=== PATIENT | female | born 1965 | race Caucasian/White ===

== ENCOUNTER → 2018-10-02 | Outpatient (CLI) | payer OTHER ==
[2015-10-11 10:16] VITALS: BP 125/64
[~2018-10-02] MED LIST: CYCL10TA2 PO; HYDR-2762 PO; LEVO75TA5 PO; METF10007 PO; SPIR1TAB2 PO
--- NOTE | 2018-10-02 14:59 | KCIC ---
MR of the left hip Indication: Left hip pain for 4 months. Technique: Standard multiplanar sequences are obtained. FINDINGS: Artifact: No significant image degradation. Bones: Bone marrow edema signal within the left femoral head, more so laterally, and extending into the left femoral neck. There is corresponding hypointense T1 signal. No evidence of focal lesion. No specific evidence of osteonecrosis although that is in the differential. No evidence of acute macro fracture. Effusion: Moderate joint effusion. Joint: Mild degenerative changes, with evidence of chondromalacia. Labrum: Tear of the anterior labrum. Gluteus minimus tendon: Intact Gluteus medius tendon: Intact Hamstring tendon: Intact Iliopsoas tendon: Intact Rectus femoris tendon attachment:Intact Soft tissue: Large septated cystic lesion in the left pelvis, measures 5.5 cm, could be of ovarian origin. Coronal STIR survey sequence inclusive of the contralateral hip demonstrates no acute findings at the contralateral hip. IMPRESSION: 1. Abnormal marrow at the left femoral head and neck with edema and loss of fatty T1 signal, suspicious for transient osteoporosis of the hip. This is nonspecific, however, and stress fracture or early avascular necrosis could result in a similar appearance. 2. Anterior labral tear. 3. Mild degenerative changes. Electronically signed by: Ryan Bang MD (10/02/2018 2:56 PM) [facility]
== END | disposition home or self-care (01) ==
LOC: KCIC MRI 08:22
PROVIDERS: ATTEND Physician Assistant Medical
DX: S73.192A Other sprain of left hip, initial encounter (principal); M16.12 Unilateral primary osteoarthritis, left hip; M25.452 Effusion, left hip; M94.252 Chondromalacia, left hip; R60.0 Localized edema; X58.XXXA Exposure to other specified factors, initial encounter; Y93.89 Activity, other specified; Y92.89 Other specified places as the place of occurrence of the external cause; Y99.8 Other external cause status
CPT/HCPCS: 73721

== ENCOUNTER → 2018-10-28 | Outpatient (CLI) | payer OTHER ==
[2015-10-11 10:16] VITALS: BP 125/64
[~2018-10-28] MED LIST changes: -HYDR-2762 PO; +HYDR-2765 PO
== END | disposition home or self-care (01) ==
LOC: LAB 23:25
PROVIDERS: ATTEND Nurse Practitioner Family
DX: N83.202 Unspecified ovarian cyst, left side (principal); N83.201 Unspecified ovarian cyst, right side
CPT/HCPCS: 36415; 86304; 86305

== ENCOUNTER → 2018-10-31 | Outpatient (CLI) | payer OTHER ==
[2015-10-11 10:16] VITALS: BP 125/64
[~2018-10-31] MED LIST changes: +BUPIVACAINE MPF 0.5% 10 ML VIAL for KCIC. IJ ONE; +IOHEXOL 300 MG/ML 50 ML VIAL. INT ART ONE; +LIDOCAINE 1% Multi-Dose 20 ML VIAL. ID ONE; +methylPREDNISolone ACETATE 40 MG/ML VIAL. INT ART ONE
--- NOTE | 2018-10-31 16:31 | KCIC ---
PROCEDURE Therapeutic left hip injection using fluoroscopic guidance. HISTORY Hip pain. TECHNIQUE The procedure was explained to the patient as were potential risks, including infection, bleeding or allergic reaction. All questions were answered. Informed written and verbal consent was obtained. The hip was prepped and draped in the usual sterile manner. Following administration of local anesthetic, a 22-gauge spinal needle was advanced into the hip joint without difficulty, with care taken to avoid the vascular structures. Stylet was removed and following negative aspiration, a mixture of 4 cc Omnipaque-300, 2 cc (80 mg) Depo-Medrol, 4 cc bupivacaine and 4 cc 1% lidocaine were injected without difficulty. Fluoroscopy demonstrates uniform and satisfactory distribution of the injection through the hip. The needle was removed. There was good hemostasis at the injection site. The patient left in stable condition without immediate complication. Patient was advised as to potential postprocedural complications and advised to contact their physician or the emergency room in such event. A single spot image was obtained. FLUOROSCOPY TIME: 45 seconds Electronically signed by: Ryan Bang MD (10/31/2018 4:27 PM) [facility][id number]
== END | disposition home or self-care (01) ==
LOC: KCIC 02:15
PROVIDERS: ATTEND Orthopaedic Surgery Sports Medicine
DX: M25.552 Pain in left hip (principal); G89.29 Other chronic pain; Z88.2 Allergy status to sulfonamides
CPT/HCPCS: 20610; 77002; J1030; Q9967

== ENCOUNTER → 2019-01-10 | Day surgery (SDC) | payer OTHER ==
[2015-10-11 10:16] VITALS: BP 125/64
[~2019-01-10] MED LIST changes: -BUPIVACAINE MPF 0.5% 10 ML VIAL for KCIC. IJ ONE; -IOHEXOL 300 MG/ML 50 ML VIAL. INT ART ONE; -LIDOCAINE 1% Multi-Dose 20 ML VIAL. ID ONE; +NITR50CA11 PO; +OXYC1TAB15 PO; -methylPREDNISolone ACETATE 40 MG/ML VIAL. INT ART ONE
--- NOTE | 2019-01-10 14:22 | EKG ---
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 Electronically Signed On 01-13-2019 10:48:58 [employer] by Ezekiel Jeronimo
[2019-01-10 14:35] LABS: BASO # 0.1 x10^3/uL (0.0-0.2); BASO % 1 % (0-3); EOS # 0.4 x10^3/uL (0.0-0.7); EOS % 4 % (0-3); HEMATOCRIT 36.8 % (36.0-47.0); HEMOGLOBIN 12.6 g/dL (12.0-15.5); LYMPH # 2.2 x10^3/uL (1.0-4.8); LYMPH % 21 % (24-48); MEAN CORPUSCULAR HEMOGLOBIN 32 pg (25-35); MEAN CORPUSCULAR HGB CONC 34 g/dL (31-37); MEAN CORPUSCULAR VOLUME 93 fL (79-100); MONO # 0.8 x10^3/uL (0.0-1.1); MONO % 8 % (0-9); NEUT # 7.1 x10^3uL (1.8-7.7); NEUT % 67 % (31-73); PLATELET COUNT 359 x10^3/uL (140-400); RED BLOOD COUNT 3.94 x10^6/uL (3.50-5.40); RED CELL DISTRIBUTION WIDTH 13.1 % (11.5-14.5); WHITE BLOOD COUNT 10.5 x10^3/uL (4.0-11.0)
[2019-01-10 14:58] LABS: ALBUMIN 3.6 g/dL (3.4-5.0); ALBUMIN/GLOBULIN RATIO 0.9 (1.0-1.7); CALCIUM 9.3 mg/dL (8.5-10.1); CREATININE 1.3 mg/dL (0.6-1.0); GFR 42.8; POTASSIUM 3.4 mmol/L (3.5-5.1); TOTAL BILIRUBIN 0.2 mg/dL (0.2-1.0); TOTAL PROTEIN 7.5 g/dL (6.4-8.2)
[2019-01-10 15:14] LABS: BILIRUBIN,URINE NEGATIVE (NEG); CLARITY,URINE CLEAR; COLOR,URINE YELLOW; NITRITE,URINE POSITIVE (NEG); PROTEIN,URINE NEGATIVE (NEG-TRACE); UROBILINOGEN,URINE 0.2 mg/dL (0.2 mg/dL)
[2019-01-10 15:32] LABS: BACTERIA,URINE MANY /HPF (0-FEW); RBC,URINE 0 /HPF (0-2); SQUAMOUS EPITHELIAL CELL,UR MANY /LPF
--- NOTE | 2019-01-13 19:04 | NUR ---
FAXED PRE - OP TEST REPORTS,LABS,UA WITH CULTURE TO 'S OFFICE 01/13/2019 AND RECEIVED TRANSMITTAL CONFIRMATION. 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
--- NOTE | 2019-01-14 19:46 | NUR ---
'S JAYLYN LUI CALLED AT 1715 THIS EVENING AND SAID PATIENT WAS PRESCRIBED TO TAKE MACROBID 100 MG BID PER ,ALSO INFORMED HER THAT EKG WAS REVIEWED BY JOHNATHAN SHIPMAN RN AT 1015 THIS AM, ANESTHESIA TEAM AND OKAY.
== END | disposition home or self-care (01) ==
LOC: SURGPAT 14:00
PROVIDERS: ATTEND Obstetrics & Gynecology
DX: I25.10 Atherosclerotic heart disease of native coronary artery without angina pectoris (principal); Z88.2 Allergy status to sulfonamides; Z79.899 Other long term (current) drug therapy
CPT/HCPCS: 36415; 80053; 81001; 85025; 87086; 87186; 93005

== ENCOUNTER 2019-01-15 06:07 | Observation (INO) | payer OTHER ==
[~2019-01-15] VITALS: Ht 165.1 cm; Wt 113.9 kg
[~2019-01-15 06:07] MED LIST changes: -NITR50CA11 PO; -OXYC1TAB15 PO; +cefOXitin SODIUM IV Push 1 GM VIAL. IVP PRN
[2019-01-15] MEDS ORDERED: NITR50CA11 PO (06:26)
[2019-01-15] MEDS ORDERED: DEXAMETHASONE SOD PHOS 20 MG/5 ML VIAL. ONE (06:48)
[2019-01-15] MEDS ORDERED: ROCURONIUM 50 MG/5 ML VIAL. ONE ×2 (06:48→08:38)
[2019-01-15] MEDS ORDERED: PROPOFOL 20 ML IV ONE (06:48)
[2019-01-15] MEDS ORDERED: ONDANSETRON PF 4 MG/2 ML VIAL. ONE (06:48)
[2019-01-15] MEDS ORDERED: LIDOCAINE 2% PF 5 ML VIAL. ONE (06:48)
[2019-01-15] MEDS: IV RINGERS,LACTATED 1000ML 1,000 ML IV SCH ×2 (06:55→11:07)
[2019-01-15] MEDS ORDERED: PROCHLORPERAZINE 10 MG/2 ML VIAL. IV PRN (07:00)
[2019-01-15] MEDS ORDERED: fentaNYL PF VIAL 100 MCG/2 ML VIAL IV PRN (07:00)
[2019-01-15] MEDS ORDERED: ONDANSETRON PF 4 MG/2 ML VIAL. IV PRN ×2 (07:00→11:00)
[2019-01-15] MEDS ORDERED: MORPHINE SULFATE 4 MG/ML VIAL. IV PRN ×2 (07:00→11:00)
[2019-01-15] MEDS ORDERED: LIDOCAINE 1% PF 2 ML VIAL. ID PRN (07:00)
[2019-01-15] MEDS ORDERED: HYDROmorphone 2 MG/ML VIAL IV PRN (07:00)
[2019-01-15] MEDS ORDERED: fentaNYL PF VIAL 100 MCG/2 ML VIAL ONE ×2 (07:15→09:31)
[2019-01-15] MEDS ORDERED: MIDAZOLAM HCL/PF 2 MG/2 ML VIAL. ONE (07:16)
[2019-01-15] MEDS ORDERED: ESTROGENS, CONJ VAGINAL CREAM 30GM TUBE. ONE (07:28)
[2019-01-15] MEDS ORDERED: BUPIVACAINE-EPI 0.25%-1:200000 MPF 30 ML VIAL. ONE (07:28)
[2019-01-15] MEDS ORDERED: METHYLENE BLUE 1% 10 ML VIAL. ONE (07:29)
[2019-01-15] MEDS ORDERED: LEVOTHYROXINE 75 MCG TABLET PO SCH (08:00)
[2019-01-15] MEDS ORDERED: CYCLOBENZAPRINE 10 MG TABLET. PO PRN (08:00)
[2019-01-15] MEDS ORDERED: KETOROLAC 30 MG/ML INJ FOR OR. INJ ONE (08:12)
[2019-01-15] MEDS ORDERED: NEOSTIGMINE 10 MG/10 ML VIAL. ONE (08:12)
[2019-01-15] MEDS ORDERED: GLYCOPYRROLATE 1 MG/5 ML VIAL. ONE (08:12)
[2019-01-15] MEDS ORDERED: PHENYLEPHRINE 10 MG/ML VIAL. ONE (08:16)
[2019-01-15] MEDS ORDERED: cefOXitin SODIUM IV Push 1 GM VIAL. IVP ONE (08:28)
[2019-01-15 08:47] LABS: U PREG PATIENT NEGATIVE (NEG)
--- NOTE | 2019-01-15 10:50 | PDOC ---
BRIEF OPERATIVE NOTE Date: Jan 15, 2019 Pre-Op Diagnosis pelvic pain, recurrent bilateral ovarian cysts Post-Op Diagnosis same plus extensive pelvic adhesive disease Procedure Performed LAVH, LSO, right oopherectomy, adhesiolysis Surgeon Dr. Aimee James Management Professor Sid Triplett Anesthesiologist Dr. Welsh Anesthesia Type: General Blood Loss 500cc IV Fluid 1500cc Urine Output 225cc clear Specimens Obtained cervix, uterus, left tube and ovary, right ovary Findings mildly enlarged cystic RV uterus, normal right ovary with small adhesion, prior right tube removed, adhesion of left tube/ovary to left sidewall, cervix and fat of desc colon Complications none Operative Note [id number] AIMEE JAMES MD Jan 15, 2019 10:50
[2019-01-15] MEDS ORDERED: 0.9 % SODIUM CHLORIDE 10 ML DISP.SYRIN. IV PRN (11:00)
[2019-01-15] MEDS ORDERED: ZOLPIDEM 5 MG TABLET. PO PRN (11:00)
[2019-01-15] MEDS ORDERED: NALOXONE 0.4 MG/ML VIAL. IV PRN (11:00)
[2019-01-15] MEDS ORDERED: CALCIUM CARBONATE 500 MG TAB.CHEW PO PRN (11:00)
[2019-01-15] MEDS ORDERED: MAGNESIUM HYDROXIDE 2,400 MG/30 ML ORAL.SUSP. PO PRN (11:00)
[2019-01-15] MEDS ORDERED: SIMETHICONE 80 MG TAB.CHEW PO PRN (11:00)
[2019-01-15] MEDS ORDERED: HYDROcodone/APAP 5/325MG 1 TAB TABLET PO PRN (11:00)
[2019-01-15] MEDS ORDERED: diphenhydrAMINE 50 MG/ML VIAL IV PRN (11:00)
[2019-01-15] MEDS ORDERED: diphenhydrAMINE HCL 25 MG CAPSULE PO PRN (11:00)
[2019-01-15] MEDS ORDERED: MAG HYDROX/ALUMINUM HYD/SIMETH 30 ML ORAL.SUSP PO PRN (11:00)
[2019-01-15] MEDS ORDERED: LACTULOSE 20 GM/30 ML SOLUTION. PO PRN (11:00)
[2019-01-15] MEDS: fentaNYL PF VIAL 100 MCG/2 ML VIAL IV PRN ×2 (11:09→11:34)
[2019-01-15] MEDS ORDERED: INSULIN LISPRO 100 UNIT/ML 3ML VIAL. SQ ONE (11:15)
[2019-01-15 12:15] VITALS: BP 94/58
[2019-01-15 12:30] VITALS: BP 97/54
[2019-01-15 13:00] VITALS: BP 99/56
--- NOTE | 2019-01-15 13:11 | OP ---
DATE OF SURGERY: 01/15/2019 PREOPERATIVE DIAGNOSES: Pelvic pain with recurrent bilateral cysts and a couple of previous laparoscopies with drainage of cysts and removal of the right fallopian tube that was cystic. POSTOPERATIVE DIAGNOSES: Pelvic pain with recurrent bilateral cysts and a couple of previous laparoscopies with drainage of cysts and removal of the right fallopian tube that was cystic plus extensive pelvic adhesive disease involving the left tube and ovary that was multicystic, stuck to the left side wall, the descending fat of the colon and the cervix. PROCEDURES: Laparoscopic-assisted vaginal hysterectomy, left salpingo-oophorectomy, right oophorectomy and extensive adhesiolysis. SURGEON: Brendan James M.D. RAIL GANG SUPERVISOR: SUZETTE Edwards. ANESTHESIOLOGIST: Aly Welsh M.D. ANESTHESIA: General. ESTIMATED BLOOD LOSS: 500 mL. URINE OUTPUT: 225 mL clear via Odom catheter. INTRAVENOUS FLUIDS: 1500 mL of crystalloid. SPECIMENS: Cervix, uterus, left tube and ovary and right ovary. FINDINGS: Mildly enlarged retroverted cystic uterus, normal right ovary with just a small adhesion. Prior removal of the right fallopian tube was noted. Adhesion of left tube and ovary encased in peritoneum socked to the left sidewall with the fat pad of the descending colon stuck to it and it was stuck to the left side of the cervix as well, so it was socked into the sidewall and bowel was stuck to it. COMPLICATIONS: None. DESCRIPTION OF PROCEDURE: This patient was taken to the operating room, where general anesthesia was placed. The patient was placed in dorsal lithotomy position in [facility]. The patient's abdomen and vagina were prepped and draped in the normal sterile fashion and a Odom catheter had been inserted under sterile technique. Upon my arrival, a timeout was performed. Once everyone agreed, a bivalve speculum was placed in the patient's vagina. A single-tooth tenaculum was used to grasp the anterior lip of the cervix. A 10 mL of 0.25% Marcaine with epinephrine was used to circumferentially inject around the cervix for both hemodissection and hemostatic purposes later. The ValEthonova uterine manipulator was placed through the endocervical os, locked on the single-tooth tenaculum and the bivalve speculum was then removed. Top gloves were discarded and changed. Attention was then turned to the abdomen, where a small supraumbilical skin incision was made with the scalpel over an existing scar. A curved Yadira was used to dissect through the subcuticular layer to the fascia. The 5-mm Visiport was used to directly enter the abdominal cavity. Opening patient pressure was 4-5 mmHg. Direct abdominal placement was confirmed via the laparoscope. Carbon dioxide gas was used to appropriately insufflate the abdominal cavity to maintain a pressure of 16-17 mmHg. It was turned up to 17-18 because she had a large 5-mm abdominal wall coming up, so I did not get a lot of insufflation, which is 15. She was turned up to 17-18 on the pressure. She was placed in Trendelenburg position. Right and left lower quadrant ports were placed after transilluminating the abdomen, finding an area clear of any vasculature. She was clear on both upper abdominal marino of any adhesions. So small incisions were made and the trocars were placed under direct visualization without difficulty and 4-5 mL of air was placed in the cuffs on both of those. The camera was then moved to look at the umbilical port. It was free and the air was placed in this cuff as well. So at this point, the right tube was noted to be missing. The right ovary was normal and just had a small thin band of adhesion that was easily clipped. The ureter could be seen coursing low on the right side and the anatomy over here was good. Ovary was normal. Again, right tube missing, but could see ureter. The uterus itself was retroverted, mildly enlarged and cystic, and then the left tube and ovary were clearly enlarged, but looked like a bulge coming from the left sidewall. It was encased in peritoneum and there was a little bit of the peritoneal like fat pad of the descending colon stuck to it, so this was peeled off first. There was an adhesion of it to the left side of the cervix as well, but starting with peeling off the fat pad over the bowel off of it and then opening up the peritoneum, we were able to grab the ovary. Some of the cyst had drained. It was multicystic as the sonogram had indicated, but it was clear fluid draining from the cyst, but it was able to be pulled up and I was able to get a plane between it and I was able to peel off the cyst from the peritoneum and go behind it, find an opening off the pelvic sidewall, able to lift it up and get out it that way and then I also came out it from the cervix way as well and kind of just worked my way around it to like to peel it off and shell it out basically. Once I did this and was able to lift it up free, I then was able to lift that peritoneal edge and still find the ureter coursing low and the cyst peeled off, and the actual left tube and ovary were so friable after peeling it off, they were separate specimen that I set in the posterior cul-de-sac to pull out later, but I was able to burn the left IP ligament with the cautery, making sure it was not bleeding and then I was able to go through the mesosalpinx under the tube on the left and then get the left round ligament, cauterizing and cutting it with the LigaSure. Then I was able to start the bladder flap on the left and the [place] elevated it and I used the monopolar hook to go across and cut it off the uterus and it peeled down very, very nicely. Once this was done, we turned attention back to the right side. The right ovary was lifted. Again that ureter had been seen previously coursing very low, staying high on the IP ligament, right under the ovary. It was cauterized and cut and then crossing the right round ligament as well. Again, the tube had previously been removed, so crossing the right round ligament, going down and further meeting that bladder flap anteriorly. The right uterine vessels were obtained, cauterized and cut and then staying on the cervix, going down through the cardinal and broad ligaments, cauterizing and cutting down to the level of the uterosacrals on the right side, but the uterus was now completely free and there was no bleeding from this right side and then going back to the left and trying to get the uterine vessels and then hugging the cervix and staying right on the cervix, going vertical, going down to the level of the uterosacrals on this side as well through the cardinal and broad, cauterizing and cutting with the LigaSure. At this point, all instruments were removed from the abdomen and attention was turned vaginally. The single tooth and Valtchev were removed. A weighted speculum was placed in the patient's vagina. Thyroid Lisa clamps were placed on the anterior and posterior lips of the cervix respectively. A scalpel was used to make a circumferential incision in the cervix. An open Ray-Elayne 4 x 4 was used to gently push up the anterior bladder peritoneum. The cervix was elevated and the posterior cul-de-sac was digitally and sharply entered. A #0 Vicryl stitch was used to secure the posterior peritoneum here to the vaginal cuff. It was tagged with a curved Yadira clamp and the needle was cut and passed off. The short weighted speculum was removed and replaced with the long weighted vaginal Lorna speculum. At this point, the bladder was up anteriorly. We were in posteriorly. So, curved Bassam clamps x 2 were placed on the patient's left uterosacral ligament, where they were doubly clamped with curved Heaneys, cut with Silva scissors and suture ligated x 2 with 0 Vicryl. The second one was taken through the vaginal cuff, securing uterosacral ligament to the vaginal cuff. It was tagged with a straight Yadira clamp and the needle was cut and passed off. This was done exactly the same on the right side, double clamping the uterosacrals with curved Bassam's, cutting with Silva scissors and suture ligating x 2 with #0 Vicryl, again taking the second one through the vaginal cuff, securing uterosacral ligament to the vaginal cuff, tagging it with a straight Yadira clamp and cutting and passing the needle off. At this point, I went up and replaced an open Ray-Elayne anteriorly, made sure we were in the anterior cul-de-sac and a right angle clamp. The mixture was taken around the remaining pedicle on the patient's left side and the vaginal LigaSure was used to cauterize and cut the remaining pedicle. This was done exactly the same on the right side. The cervix, uterus, right ovary were delivered in total. The left tube and ovary that had been placed in pieces in the posterior cul-de-sac was found with the cyst in the tube and this was also passed off, but it was a separate specimen. Then, everything was passed off for permanent pathology all together. A sponge stick was used to examine the pedicles. There was some bleeding from the left uterosacral that was able to be obtained with the vaginal LigaSure. Sponge stick was used to examine the pedicles and the remaining pedicles appeared hemostatic. Copious clots were cleared from the posterior vagina and this was from all the adhesions and stuff from above. Once this was done, the Ray-Elayne was removed. The anterior bladder peritoneum was grasped with a long Allis, 2-0 Vicryl was taken through the anterior bladder peritoneum, left uterosacral ligament, posterior peritoneum and right uterosacral ligament, thus closing the peritoneum in a pursestring like fashion. Once this was done, the right and left uterosacral tags were clipped as well and the cuff was closed in an [id number] running locked fashion with 2-0 Vicryl and tied to that posterior cuff tag. The cuff was completely hemostatic, so the legs were placed down. All gloves were discarded and changed. The counts below were correct and attention was turned back above for a second look. All the clots had almost been evacuated vaginally. There were minimal clots above. Nothing was actively bleeding. Copious irrigation revealed hemostasis. Tisseel was placed over the raw surface areas, especially on the left side, where all the adhesiolysis had been performed, but the cuff looked good. So, at this point, the right and left lower quadrant ports, the air was taken out of those, those were removed under direct visualization. These were hemostatic. Gas was released from the umbilical one. The cuff was deflated on this too and it was removed. All three port sites were closed with 4-0 nylon at the skin and injected with 10 mL of 0.25% Marcaine with epinephrine. The patient was then awakened from anesthesia, extubated and brought to recovery room in stable condition. There was over an hour of adhesions, trying to get this left ovary up, so most of the surgery was spent on the adhesions. The hysterectomy itself was good once the left tube and ovary were able to be peeled off that sidewall. BRENDAN JAMES MD DR: PAOLA/zunilda JOB#: [id number] / [id number]
[2019-01-15] MEDS: oxyCODONE/APAP 5/325 1 TAB TABLET PO PRN ×2 (14:15→21:27)
[2019-01-15 14:40] VITALS: BP 101/58
[2019-01-15 18:28] VITALS: BP 101/66
[2019-01-15 23:30] VITALS: BP 96/61
[2019-01-16 05:05] LABS: CALCIUM 8.5 mg/dL (8.5-10.1); CREATININE 1.4 mg/dL (0.6-1.0); GFR 39.3; POTASSIUM 3.9 mmol/L (3.5-5.1)
[2019-01-16] MEDS: oxyCODONE/APAP 5/325 1 TAB TABLET PO PRN ×2 (05:55→11:17)
[2019-01-16 06:32] VITALS: BP 93/59
--- NOTE | 2019-01-16 09:40 | PDOC ---
SURGICAL PROGRESS NOTE Subjective sitting up in chair visiting with a group of coworkers upon my arrival. No acute distress. Said tolerating a regular diet, voiding without catheter, no N/ v, steady on feet. scant vag bleeding and ambulating well. Wants to go home later today Vital Signs Vital Signs Date Time Temp Pulse Resp B/P (MAP) Pulse Ox O2 Delivery O2 Flow Rate FiO2 01/16/19 06:32 97.8 87 14 93/59 (70) 96 97.8 01/15/19 23:30 Room Air 01/15/19 11:13 10 I&O Intake and Output 01/16/19 07:00 Intake Total 1600 ml Output Total 825 ml Balance 775 ml Intake Oral 800 ml Blood Product IV Normal Saline Flush 800 ml Output Urine Total 325 ml Estimated Blood Loss 500 ml # Voids 2 PATIENT HAS A AGUILAR: No General: Alert, Oriented X3, Cooperative, No acute distress HEENT: Atraumatic Heart: Regular rate Abdomen: Soft, Other (all port sites c/d/i) Extremities: No clubbing, No cyanosis, No edema Skin: No rashes, No breakdown Neuro: Normal speech Psych/Mental Status: Mental status NL, Mood NL Labs Laboratory Tests Test 01/15/19 06:15 01/15/19 06:53 01/15/19 11:06 01/16/19 04:10 Urine Test Negative (NEG) Glucose (Fingerstick) 86 mg/dL (70-99) 138 mg/dL (70-99) Hematocrit 28.7 % (36.0-47.0) Sodium Level 138 mmol/L (136-145) Potassium Level 3.9 mmol/L (3.5-5.1) Chloride Level 102 mmol/L (98-107) Carbon Dioxide Level 25 mmol/L (21-32) Anion Gap 11 (6-14) Blood Urea Nitrogen 29 mg/dL (7-20) Creatinine 1.4 mg/dL (0.6-1.0) Estimated GFR (Cockcroft-Gault) 39.3 Glucose Level 138 mg/dL (70-99) Calcium Level 8.5 mg/dL (8.5-10.1) Laboratory Tests Test 01/15/19 11:06 01/16/19 04:10 Glucose (Fingerstick) 138 mg/dL (70-99) Hematocrit 28.7 % (36.0-47.0) Sodium Level 138 mmol/L (136-145) Potassium Level 3.9 mmol/L (3.5-5.1) Chloride Level 102 mmol/L (98-107) Carbon Dioxide Level 25 mmol/L (21-32) Anion Gap 11 (6-14) Blood Urea Nitrogen 29 mg/dL (7-20) Creatinine 1.4 mg/dL (0.6-1.0) Estimated GFR (Cockcroft-Gault) 39.3 Glucose Level 138 mg/dL (70-99) Calcium Level 8.5 mg/dL (8.5-10.1) I have reviewed the following labs, vitals, nursing Problem List PCOS, pelvic pain, left ovarian cyst, pelvic adhesive disease Assessment/Plan POD#1 s/p LAVH, LSO, Rt oopherectomy, adhesiolysis Routine PO care d/c to home later today NPV x 6 weeks Light/limited activity x 2 weeks keep scheduled follow up with me in one week Percocet-written OK for OTC ibuprofen NO driving while on narcotic pain meds Call or return sooner for any other questions or concerns not limited to but including pain unrelieved with pain pills, increased or unexplained vaginal bleeding or T>100.4 also informed pt of creat preop 1.3 and 1.4 (stable) postop and asked her to follow up on this bc no prior known kidney issues BREDNAN JAMES MD Jan 16, 2019 09:40
--- NOTE | 2019-01-16 09:42 | PDOC3 ---
Discharge Summary Visit Information Date of Admission: Jan 15, 2019 Date of Discharge: Jan 16, 2019 Admitting Diagnosis Comment: PCOS, recurrent ovarian cyst, pelvic pain Final Diagnosis same plus pelvic adhesive disease Brief Hospital Course Allergies Allergies Coded Allergies Type Severity Reaction Last Updated Verified Sulfa (Sulfonamide Antibiotics) Allergy Intermediate 01/15/19 Yes Vital Signs Vital Signs Date Time Temp Pulse Resp B/P (MAP) Pulse Ox O2 Delivery O2 Flow Rate FiO2 01/16/19 06:32 97.8 87 14 93/59 (70) 96 97.8 01/15/19 23:30 Room Air 01/15/19 11:13 10 Lab Results Laboratory Tests Test 01/15/19 06:15 01/15/19 06:53 01/15/19 11:06 01/16/19 04:10 Urine Test Negative (NEG) Glucose (Fingerstick) 86 mg/dL (70-99) 138 mg/dL (70-99) Hematocrit 28.7 % (36.0-47.0) Sodium Level 138 mmol/L (136-145) Potassium Level 3.9 mmol/L (3.5-5.1) Chloride Level 102 mmol/L (98-107) Carbon Dioxide Level 25 mmol/L (21-32) Anion Gap 11 (6-14) Blood Urea Nitrogen 29 mg/dL (7-20) Creatinine 1.4 mg/dL (0.6-1.0) Estimated GFR (Cockcroft-Gault) 39.3 Glucose Level 138 mg/dL (70-99) Calcium Level 8.5 mg/dL (8.5-10.1) Laboratory Tests Test 01/15/19 11:06 01/16/19 04:10 Glucose (Fingerstick) 138 mg/dL (70-99) Hematocrit 28.7 % (36.0-47.0) Sodium Level 138 mmol/L (136-145) Potassium Level 3.9 mmol/L (3.5-5.1) Chloride Level 102 mmol/L (98-107) Carbon Dioxide Level 25 mmol/L (21-32) Anion Gap 11 (6-14) Blood Urea Nitrogen 29 mg/dL (7-20) Creatinine 1.4 mg/dL (0.6-1.0) Estimated GFR (Cockcroft-Gault) 39.3 Glucose Level 138 mg/dL (70-99) Calcium Level 8.5 mg/dL (8.5-10.1) Brief Hospital Course Ms. Gill is a 53 old female who presented with PCOS and history of recurrent ovarian cysts with pelvic pain. She underwent and LAVH with extensive adhesiolysis due to left ovary enlarged/cystic and stuck to left pelvic sidewall , cervix and desc colon fat. She did well postoperatively and has remained AFVSS ambulating well, voiding without catheter, tolerating regular diet without N/v and scant VB Discharge Information Condition at Discharge: Stable Follow Up: Weeks Disposition/Orders: D/C to Home Scheduled Cyclobenzaprine Hcl (Cyclobenzaprine Hcl) 10 Mg Tablet, 10 MG PO PRN for spaMS, (Reported) Entered as Reported by: POLI MIXON on 10/11/151018 Last Taken: Unknown Dose on 01/14/19 Last Action: Continued on 01/15/19748 by BRENDAN JAMES Levothyroxine Sodium (Levothyroxine Sodium) 75 Mcg Tablet, 75 MCG PO DAILYAC for THYROID SUPPLEMENT, #30 Ref 0 (Reported) Entered as Reported by: POLI MIXON on 10/11/151018 Last Taken: Unknown Dose on 01/15/1915 Last Action: Continued on 748 by BRENDAN JAMES Metformin Hcl (Metformin Hcl) 1,000 Mg Tablet, 1,000 MG PO DAILY for ANTI- DIABETIC, Ref 0 (Reported) Entered as Reported by: POLI MIXON on 10/11/151018 Last Taken: Unknown Dose on 01/14/19 Last Action: HELD on 01/15/19748 by BRENDAN JAMES Nitrofurantoin Macrocrystal (Macrodantin) 50 Mg Capsule, 1 CAP PO BID for UTI, # 14 (Reported) Entered as Reported by: CEM JEFFERY on 01/15/19625 Last Taken: Unknown Dose on 01/14/191999 Last Action: HELD on 01/15/19748 by BRENDAN JAMES Spironolact/Hydrochlorothiazid (Aldactazide 50-50 Tablet) 1 Each Tablet, 1 EACH PO DAILY, (Reported) Entered as Reported by: POLI MIXON on 10/11/151018 Last Taken: Unknown Dose on 01/14/19 Last Action: HELD on 01/15/1949 by BRENDAN JAMES Patient Instructions Patient Instructions POD#1 s/p LAVH, LSO, Rt oopherectomy, adhesiolysis Routine PO care d/c to home later today NPV x 6 weeks Light/limited activity x 2 weeks keep scheduled follow up with me in one week Percocet-written OK for OTC ibuprofen NO driving while on narcotic pain meds Call or return sooner for any other questions or concerns not limited to but including pain unrelieved with pain pills, increased or unexplained vaginal bleeding or T>100.4 also informed pt of creat preop 1.3 and 1.4 (stable) postop and asked her to follow up on this bc no prior known kidney issues BRENDAN JAMES MD Jan 16, 2019 09:42
[2019-01-16 12:45] VITALS: BP 100/66
[2019-01-16] MEDS ORDERED: OXYC1TAB15 PO ×2 (14:35→14:38)
--- NOTE | 2019-01-17 17:10 | PATHOLOGY ---
[facility] Accession Number: [id number] . 01 Material submitted: . CERVIX, UTERUS, LEFT TUBE, AND BILATERAL OVARIES . 01 Clinical history: . Bilateral ovarian cysts . 02 Diagnosis: Uterus with attached right ovary and left fallopian tube and separate detached segments of ovarian tissue, laparoscopic-assisted vaginal hysterectomy with left salpingectomy and bilateral oophorectomy: - Adenomyosis, uterine corpus, focal (uterine weight 189 grams). - Nabothian cysts and endocervical gland tunnel clusters of endocervix. - Serosal endosalpingiosis, uterine corpus. - Atrophic endometrium. - Small left paratubal cyst. - Few serous cysts of right ovary. - Serous cystoadenoma and adhesions of left ovary. (JPM:ronald; 01/17/2019) QMS/01/17/2019 . 02 Comment: There is no evidence of malignancy. . 02 Electronically signed: . Isreal Doran MD, Pathologist NPI- [id number] . 01 Gross description: . The specimen is received in formalin, labeled "Adriana Gill, cervix, uterus, left tube, bilateral ovaries". Received is a 189 g, 11.3 x 7.3 x 5.5 cm uterus with attached cervix, attached left fallopian tube weighing 1 g, and attached right ovary weighing 6 g. The uterine serosa is light jackman with multiple serosal cysts ranging in size from 0.1 to 0.7 cm. The 1.7 cm slit-like cervical os is surrounded by pale jackman, smooth to glistening ectocervical mucosa. The uterus is oriented using the peritoneal reflection and the anterior paracervical margin is inked black. The uterus is opened laterally to reveal a pale jackman, partially cystic endocervical canal measuring 3.3 cm. The endometrial cavity is triangular measuring 5.7 cm in length by 3.3 cm in width. The endometrium is pale jackman, glistening in appearance and measures 0.1 cm in thickness. Serial sectioning reveals a jackman-pink, trabeculated myometrium measuring up to 2.8 cm in thickness displaying a slight amount of adenomyosis in the posterior aspect. . The left non-fimbriated fallopian tube measures 3.4 cm in length by 0.6 cm in diameter. Sectioning reveals a pinpoint to patent lumen. . The right ovary measures 3.0 x 2.5 x 1.5 cm in greatest dimensions. Sectioning reveals several cystic structures ranging in size from 0.3 to 1.3 cm filled with clear serous fluid. Remaining cut surfaces display pale jackman, normal ovarian stroma. . Also received within the specimen container is a 13 g aggregate of fibromembranous tissue with multiple cystic structures present ranging in size from 0.4 to 1.3 cm. The specimen is submitted representatively as follows: . A1 12:00 cervix A2 6:00 cervix A3 union representative sections of serosal cysts A4 anterior endomyometrium A5 posterior endomyometrium with adenomyosis A6 left fallopian tube A7 right ovary A8-A10 union representative sections of separately submitted fibrous membranous tissue with adherent cysts. (CAA; 01/16/2019) QAC/QAC . 02 Pathologist provided ICD-10: D27.1, N80.0, N85.8, N94.89, N83.8 . 02 CPT . 053876 Specimen Comment: A courtesy copy of this report has been sent to Specimen Comment: [phone], . Specimen Comment: Report sent to / DR LLOYD Specimen Comment: A duplicate report has been generated due to demographic updates. Performed at: 01 [facility] [address], [place] [id number] MD Jesus Washburn MD Phone: [phone] Performed at: 02 [facility] [address] [place], [place] [id number] MD Isreal Doran MD Phone: [phone]
== END 2019-01-16 16:27 | disposition home or self-care (01) ==
LOC: SURG 06:07 → 3 NORTH 10:45
PROVIDERS: ADMIT Obstetrics & Gynecology; ATTEND Obstetrics & Gynecology
DX: N92.0 Excessive and frequent menstruation with regular cycle (principal); N73.6 Female pelvic peritoneal adhesions (postinfective); E03.9 Hypothyroidism, unspecified; E28.2 Polycystic ovarian syndrome; N94.6 Dysmenorrhea, unspecified; Z98.890 Other specified postprocedural states
CPT/HCPCS: 36415; 58552; 80048; 81025; 82962; 85014; 86850; 86900; 86901; 88307; A7015; G0378; G0379; J0694; J0780; J1100; J1885; J2001; J2250; J2405; J2704; J2710; J3010; J3490; J7030; J7120; J2270; Q9968

== ENCOUNTER → 2019-02-25 | Outpatient (CLI) | payer OTHER ==
[~2019-02-25] MED LIST changes: +NITR50CA11 PO; +OXYC1TAB15 PO; -cefOXitin SODIUM IV Push 1 GM VIAL. IVP PRN
[2019-02-25 00:10] LABS: BASO # 0.1 x10^3/uL (0.0-0.2); BASO % 1 % (0-3); EOS # 0.6 x10^3/uL (0.0-0.7); EOS % 5 % (0-3); HEMATOCRIT 38.9 % (36.0-47.0); HEMOGLOBIN 12.7 g/dL (12.0-15.5); LYMPH % 33 % (24-48); MEAN CORPUSCULAR HEMOGLOBIN 31 pg (25-35); MEAN CORPUSCULAR HGB CONC 33 g/dL (31-37); MEAN CORPUSCULAR VOLUME 94 fL (79-100); MONO # 0.8 x10^3/uL (0.0-1.1); MONO % 6 % (0-9); NEUT % 56 % (31-73); PLATELET COUNT 381 x10^3/uL (140-400); RED BLOOD COUNT 4.13 x10^6/uL (3.50-5.40); RED CELL DISTRIBUTION WIDTH 13.6 % (11.5-14.5); WHITE BLOOD COUNT 12.4 x10^3/uL (4.0-11.0)
[2019-02-25 00:27] LABS: ALBUMIN 4.1 g/dL (3.4-5.0); ALBUMIN/GLOBULIN RATIO 0.9 (1.0-1.7); CALCIUM 9.7 mg/dL (8.5-10.1); CREATININE 1.4 mg/dL (0.6-1.0); GFR 39.3; POTASSIUM 3.5 mmol/L (3.5-5.1); TOTAL BILIRUBIN 0.1 mg/dL (0.2-1.0); TOTAL PROTEIN 8.5 g/dL (6.4-8.2)
== END | disposition home or self-care (01) ==
LOC: LAB 00:03
PROVIDERS: ATTEND Obstetrics & Gynecology
DX: Z98.890 Other specified postprocedural states (principal)
CPT/HCPCS: 36415; 80053; 85025

== ENCOUNTER → 2019-02-26 | Outpatient (CLI) | payer OTHER ==
[~2019-02-26] MED LIST changes: +BUPIVACAINE MPF 0.5% 10 ML VIAL for KCIC. IM ONE; +IOHEXOL 300 MG/ML 50 ML VIAL. INT ART ONE; +LIDOCAINE 1% Multi-Dose 20 ML VIAL. ID ONE; +methylPREDNISolone ACETATE 40 MG/ML VIAL. INT ART ONE
--- NOTE | 2019-02-26 13:04 | KCIC ---
Examination: Fluoro Guided Therapeutic injection left hip. History: Left hip pain Comparison: 10/31/2018 Technique: Relative benefits risks and alternatives to the procedure were discussed and verbal and written informed consent was obtained. The patient was carefully prepped and draped in a sterile fashion. Lidocaine was used for local anesthesia. A 22-gauge spinal needle was advanced to the level of the hip joint at the femoral neck. A mixture of 4 cc of Omnipaque 300, 4 cc of lidocaine, 4 cc bupivacaine and 80 mg of Depo-Medrol was administered. A single fluoroscopic image was obtained showing contrast in the joint. Impression: Therapeutic injection left hip. 27 seconds of fluoroscopy was used for the procedure. Electronically signed by: Du Esquivel MD (02/26/2019 1:01 PM) [id number]
== END | disposition home or self-care (01) ==
LOC: KCIC 10:17
PROVIDERS: ATTEND Orthopaedic Surgery Sports Medicine
DX: M16.12 Unilateral primary osteoarthritis, left hip (principal); Z88.2 Allergy status to sulfonamides; Z90.710 Acquired absence of both cervix and uterus
CPT/HCPCS: 20610; 77002; J1030; Q9967

== ENCOUNTER → 2019-03-28 | Outpatient (CLI) | payer OTHER ==
[~2019-03-28] MED LIST changes: -BUPIVACAINE MPF 0.5% 10 ML VIAL for KCIC. IM ONE; -IOHEXOL 300 MG/ML 50 ML VIAL. INT ART ONE; -LIDOCAINE 1% Multi-Dose 20 ML VIAL. ID ONE; -methylPREDNISolone ACETATE 40 MG/ML VIAL. INT ART ONE
[2019-03-28 08:14] LABS: BASO # 0.1 x10^3/uL (0.0-0.2); BASO % 1 % (0-3); EOS # 0.3 x10^3/uL (0.0-0.7); EOS % 3 % (0-3); HEMATOCRIT 36.6 % (36.0-47.0); HEMOGLOBIN 12.2 g/dL (12.0-15.5); LYMPH % 24 % (24-48); MEAN CORPUSCULAR HEMOGLOBIN 31 pg (25-35); MEAN CORPUSCULAR HGB CONC 33 g/dL (31-37); MEAN CORPUSCULAR VOLUME 93 fL (79-100); MONO # 0.8 x10^3/uL (0.0-1.1); MONO % 6 % (0-9); NEUT # 8.2 x10^3uL (1.8-7.7); NEUT % 66 % (31-73); PLATELET COUNT 386 x10^3/uL (140-400); RED BLOOD COUNT 3.93 x10^6/uL (3.50-5.40); RED CELL DISTRIBUTION WIDTH 13.4 % (11.5-14.5); WHITE BLOOD COUNT 12.4 x10^3/uL (4.0-11.0)
[2019-03-28 08:20] LABS: PROTHROMBIN TIME PATIENT 12.3 SEC (11.7-14.0)
[2019-03-28 08:31] LABS: ALBUMIN 4.3 g/dL (3.4-5.0); ALBUMIN/GLOBULIN RATIO 1.1 (1.0-1.7); CREATININE 1.6 mg/dL (0.6-1.0); GFR 33.7; POTASSIUM 3.4 mmol/L (3.5-5.1); TOTAL BILIRUBIN 0.2 mg/dL (0.2-1.0); TOTAL PROTEIN 8.2 g/dL (6.4-8.2)
== END | disposition home or self-care (01) ==
LOC: LAB 05:42
PROVIDERS: ATTEND Physician Assistant Medical
DX: R79.89 Other specified abnormal findings of blood chemistry (principal)
CPT/HCPCS: 36415; 80053; 85025; 85610

== ENCOUNTER → 2019-05-23 | Outpatient (CLI) | payer OTHER ==
[~2019-05-23] MED LIST changes: +BUPIVACAINE MPF 0.5% 10 ML VIAL. IJ ONE; +IOHEXOL 300 MG/ML 50 ML VIAL. IJ ONE; +LIDOCAINE WITH 8.4% SOD BICARB 3 ML DISP.SYRIN. INJ ONE; +methylPREDNISolone ACETATE 80 MG/ML VIAL. INJ ONE
--- NOTE | 2019-05-23 09:43 | RAD ---
Examination: ARTHROCENT MJR JT ASP/INJ LEFT History: Left hip pain Comparison/Correlation: 02/26/2019 left hip joint injection images Findings: Frontal staff software engineer view of the left hip joint was obtained prior to initiation of the procedure. Left hip joint space narrowing at the superolateral aspect is severe with sclerosis evident. Cleansing with ChloraPrep was performed. Fluoroscopy was utilized for 0.4 minutes. A fluoroscopic image was acquired during the procedure confirming contrast placement within the left hip joint capsule. Sterile drape was placed. 8 cc 1 percent lidocaine was administered at the site of anticipated needle placement after preliminary imaging with fluoroscopy. A 22-gauge spinal needle was placed under fluoroscopic guidance and a portion of the lidocaine was administered more deeply. Approximately 1.5 cc Omnipaque contrast was injected confirming needle placement within the hip joint capsule. Subsequently, 10 cc 0.5 percent bupivacaine and 80 mg Depo-Medrol was injected into the left hip joint capsule. The patient tolerated the procedure well without immediate comp occasions. Impression: Successful left hip joint injection. Electronically signed by: Jonnie Haro MD (05/23/2019 9:40 AM) [facility]
== END ==
LOC: RAD 07:37
PROVIDERS: ATTEND Orthopaedic Surgery Sports Medicine
DX: M25.552 Pain in left hip (principal)
CPT/HCPCS: 20610; 77002; J1040; Q9967

== ENCOUNTER → 2019-05-23 | Outpatient (CLI) | payer OTHER ==
[~2019-05-23] MED LIST changes: -BUPIVACAINE MPF 0.5% 10 ML VIAL. IJ ONE; -IOHEXOL 300 MG/ML 50 ML VIAL. IJ ONE; -LIDOCAINE WITH 8.4% SOD BICARB 3 ML DISP.SYRIN. INJ ONE; -methylPREDNISolone ACETATE 80 MG/ML VIAL. INJ ONE
[2019-05-23 08:07] LABS: BASO # 0.1 x10^3/uL (0.0-0.2); BASO % 1 % (0-3); EOS # 0.4 x10^3/uL (0.0-0.7); EOS % 4 % (0-3); HEMATOCRIT 37.6 % (36.0-47.0); HEMOGLOBIN 12.7 g/dL (12.0-15.5); LYMPH # 2.2 x10^3/uL (1.0-4.8); LYMPH % 25 % (24-48); MEAN CORPUSCULAR HEMOGLOBIN 31 pg (25-35); MEAN CORPUSCULAR HGB CONC 34 g/dL (31-37); MEAN CORPUSCULAR VOLUME 92 fL (79-100); MONO # 0.5 x10^3/uL (0.0-1.1); MONO % 6 % (0-9); NEUT # 5.5 x10^3uL (1.8-7.7); NEUT % 64 % (31-73); PLATELET COUNT 363 x10^3/uL (140-400); RED CELL DISTRIBUTION WIDTH 13.4 % (11.5-14.5); WHITE BLOOD COUNT 8.7 x10^3/uL (4.0-11.0)
[2019-05-23 08:20] LABS: CALCIUM 9.6 mg/dL (8.5-10.1); CREATININE 1.5 mg/dL (0.6-1.0); GFR 36.3; POTASSIUM 3.8 mmol/L (3.5-5.1)
[2019-05-24 01:10] LABS: PROTEIN 24 HR UR <144 mg/24 hr (30-150); UR PROTEIN <4.0 mg/dL (Not Estab.)
[2019-05-24 02:07] LABS: TOTAL SERUM CREATININE 1.43 mg/dL (0.57-1.00); TOTAL URINE CREATININE 38.6 mg/dL (Not Estab.)
== END | disposition home or self-care (01) ==
LOC: LAB 07:47
PROVIDERS: ATTEND Physician Assistant Medical
DX: Z90.710 Acquired absence of both cervix and uterus (principal)
CPT/HCPCS: 36415; 80048; 82575; 84156; 85025

== ENCOUNTER → 2019-08-14 | Outpatient (CLI) | payer OTHER ==
[2019-08-14 02:58] LABS: BASO # 0.1 x10^3/uL (0.0-0.2); BASO % 1 % (0-3); EOS # 0.3 x10^3/uL (0.0-0.7); EOS % 2 % (0-3); HEMATOCRIT 36.8 % (36.0-47.0); HEMOGLOBIN 12.5 g/dL (12.0-15.5); LYMPH # 3.5 x10^3/uL (1.0-4.8); LYMPH % 32 % (24-48); MEAN CORPUSCULAR HEMOGLOBIN 31 pg (25-35); MEAN CORPUSCULAR HGB CONC 34 g/dL (31-37); MEAN CORPUSCULAR VOLUME 92 fL (79-100); MONO # 0.7 x10^3/uL (0.0-1.1); MONO % 6 % (0-9); NEUT # 6.3 x10^3/uL (1.8-7.7); NEUT % 58 % (31-73); PLATELET COUNT 372 x10^3/uL (140-400); RED BLOOD COUNT 3.99 x10^6/uL (3.50-5.40); RED CELL DISTRIBUTION WIDTH 14.3 % (11.5-14.5); WHITE BLOOD COUNT 10.8 x10^3/uL (4.0-11.0)
[2019-08-14 03:10] LABS: CALCIUM 9.8 mg/dL (8.5-10.1); CREATININE 1.5 mg/dL (0.6-1.0); GFR 36.3; POTASSIUM 3.4 mmol/L (3.5-5.1)
[2019-08-15 00:11] LABS: HEMOGLOBIN A1C 5.2 % (4.8-5.6)
== END | disposition home or self-care (01) ==
LOC: LAB 01:25
PROVIDERS: ATTEND Physician Assistant Medical
DX: R94.4 Abnormal results of kidney function studies (principal)
CPT/HCPCS: 36415; 80048; 83036; 85025

== ENCOUNTER → 2019-10-06 | Outpatient (CLI) | payer OTHER ==
[~2019-10-06] MED LIST changes: +ACET325T9 PO; +VENL150C PO
[2019-10-06 12:37] LABS: BILIRUBIN,URINE NEGATIVE (NEG); CLARITY,URINE CLEAR; COLOR,URINE YELLOW; NITRITE,URINE POSITIVE (NEG); PH,URINE 6.5; PROTEIN,URINE NEGATIVE (NEG-TRACE); UROBILINOGEN,URINE 0.2 mg/dL (0.2 mg/dL)
[2019-10-06 12:56] LABS: BASO # 0.1 x10^3/uL (0.0-0.2); BASO % 1 % (0-3); EOS # 0.2 x10^3/uL (0.0-0.7); EOS % 2 % (0-3); HEMATOCRIT 37.4 % (36.0-47.0); HEMOGLOBIN 12.7 g/dL (12.0-15.5); LYMPH # 2.4 x10^3/uL (1.0-4.8); LYMPH % 30 % (24-48); MEAN CORPUSCULAR HEMOGLOBIN 32 pg (25-35); MEAN CORPUSCULAR HGB CONC 34 g/dL (31-37); MEAN CORPUSCULAR VOLUME 94 fL (79-100); MONO # 0.5 x10^3/uL (0.0-1.1); MONO % 6 % (0-9); NEUT % 61 % (31-73); PLATELET COUNT 355 x10^3/uL (140-400); RED BLOOD COUNT 3.99 x10^6/uL (3.50-5.40); RED CELL DISTRIBUTION WIDTH 13.9 % (11.5-14.5); WHITE BLOOD COUNT 8.2 x10^3/uL (4.0-11.0)
[2019-10-06 12:57] LABS: SQUAMOUS EPITHELIAL CELL,UR MOD /LPF
[2019-10-06 12:58] LABS: HYALINE CASTS, URINE OCCASIONAL /HPF
[2019-10-06 12:59] LABS: BACTERIA,URINE MANY /HPF (0-FEW); RBC,URINE OCC /HPF (0-2); WBC,URINE 20-40 /HPF (0-4)
[2019-10-06 13:12] LABS: CALCIUM 9.7 mg/dL (8.5-10.1); CREATININE 1.3 mg/dL (0.6-1.0); GFR 42.8; POTASSIUM 3.8 mmol/L (3.5-5.1)
[2019-10-06 13:28] LABS: PROTHROMBIN TIME PATIENT 12.5 SEC (11.7-14.0)
--- NOTE | 2019-10-06 13:30 | RAD ---
EXAM: Chest, 2 views. HISTORY: Arthroplasty. COMPARISON: None. FINDINGS: 2 views of chest are obtained. There is no infiltrate, pleural effusion or pneumothorax. The heart is normal in size. IMPRESSION: No acute pulmonary finding. Electronically signed by: Vanita Medel MD (10/06/2019 1:27 PM) [place] [id number]
== END | disposition home or self-care (01) ==
LOC: SURGPAT 12:00
PROVIDERS: ATTEND Orthopaedic Surgery
DX: Z01.818 Encounter for other preprocedural examination (principal); M16.32 Unilateral osteoarthritis resulting from hip dysplasia, left hip
CPT/HCPCS: 36415; 71046; 80048; 81001; 82040; 82306; 85025; 85610; 85651; 85730; 87086; 87186; 87641

== ENCOUNTER 2019-10-28 07:23 | Inpatient (IN) | payer OTHER ==
[2019-10-28] VITALS (8 sets, daily range): BP systolic 97–120; BP diastolic 59–73
[~2019-10-28] VITALS: Ht 165.1 cm; Wt 101.5 kg
[~2019-10-28 07:23] MED LIST changes: +ACETAMINOPHEN 500 MG TABLET PO PRN; +GABAPENTIN 300 MG CAPSULE. PO PRN; +IV RINGERS,LACTATED 1000ML 1,000 ML IV SCH; +KETOROLAC 30MG VIAL 30 MG, ROPIVacaine 0.5% PF 60 ML, EPINEPHrine 0.5 MG in IV NORMAL S... INJ ONE; +MELOXICAM 7.5 MG TABLET PO PRN; +ONDANSETRON PF 4 MG/2 ML VIAL. IV PRN; +PROCHLORPERAZINE 10 MG/2 ML VIAL. IV PRN; +TRANEXAMIC ACID 1,000 MG in IV NS 50ML -- 1ST BAG INJ ONE; +TV=100ml MORPHINE 5 MG, KETOROLAC 30 MG, ROPIVacaine 0.5% PF 60 ML, EPINEPH... INT ART ONE; +ceFAZolin 2GM PREMIX 2 GM/50 ML BAG IV ONE; +fentaNYL PF VIAL 100 MCG/2 ML VIAL IV PRN
[2019-10-28] MEDS ORDERED: TRANEXAMIC ACID 1,000 MG in IV NS 50ML -- 2ND BAG INJ ONE (08:00)
--- NOTE | 2019-10-28 08:05 | HP ---
ADMIT DATE: 10/28/2019 PREOPERATIVE HISTORY AND PHYSICAL HISTORY OF PRESENT ILLNESS: The patient is a 53-year-old male with a chief complaint of left hip pain, worsening left groin pain, stiffness in her hip radiating down the thigh, stays above the knee, worse on startup and with increased activities, very limiting to her activities of daily living and failed nonoperative measures. She is here today for left total hip arthroplasty. PAST MEDICAL HISTORY: Hypothyroidism, fatigue, obesity, ovarian cyst. PAST SURGICAL HISTORY: Breast biopsy, hysterectomy, cholecystectomy, ovarian cysts, fallopian tube surgery and tonsillectomy. FAMILY HISTORY: Breast cancer in her mother, heart disease, hypertension, diabetes in her dad. Brother and sister alive and healthy. SOCIAL HISTORY: Denies smoking, alcohol or drug use. 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 MEDICATIONS: List is reviewed. ALLERGIES: INCLUDE ITCHING WITH CODEINE AND RASH WITH SULFA. REVIEW OF SYSTEMS: Denies any chest pain, shortness of breath, fever, chills, constitutional symptoms. Her last urinalysis was negative and she had been drinking cranberry juice on an ongoing basis as she had some concern for recurrent UTIs. PHYSICAL EXAMINATION: VITAL SIGNS: Height 65 inches, weight 224, BMI 37.27. Rest of her vital signs per admission sheet. HEENT: Atraumatic, normocephalic. HEART: Regular rate and rhythm. LUNGS: Clear to auscultation bilaterally. ABDOMEN: Benign. EXTREMITIES: Left hip reveals decreased range of motion in all planes with pain at her already decreased range of motion compared to the right. Normal alignment, stability of bilateral knees and ankles. IMAGING: X-rays show [id number] degenerative change in the left hip, previous evidence of congenital abnormality. 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 TREATMENT PLAN: I went over with her risks and benefits of total hip arthroplasty including the anterior versus posterior approach of the hip. We also talked about the leg length inequality, infection, nerve or blood vessel damage, premature wear or loosening, medical or other anesthetic complications among others. All her questions were answered and she wishes to proceed. We will plan on a posterior approach total hip arthroplasty with [facility] admission to follow. DIMITRIS GIBBONS MD DR: DEJA/zunilda JOB#: [id number] / [id number]
[2019-10-28 08:36] LABS: PROTHROMBIN TIME PATIENT 12.7 SEC (11.7-14.0)
[2019-10-28] MEDS ORDERED: GABAPENTIN 300 MG CAPSULE. PO ONE (08:45)
[2019-10-28] MEDS ORDERED: fentaNYL PF VIAL 100 MCG/2 ML VIAL ONE ×4 (08:56→12:28)
[2019-10-28] MEDS ORDERED: ROCURONIUM 50 MG/5 ML VIAL. ONE (08:57)
[2019-10-28] MEDS ORDERED: MIDAZOLAM HCL/PF 2 MG/2 ML VIAL. ONE (08:57)
[2019-10-28] MEDS ORDERED: GLYCOPYRROLATE 1 MG/5 ML VIAL. ONE (08:57)
[2019-10-28] MEDS ORDERED: NEOSTIGMINE METHYLSULFATE 5 MG/5 ML SYRINGE. ONE (08:57)
[2019-10-28] MEDS ORDERED: DEXAMETHASONE SOD PHOS 4 MG/ML VIAL ONE (10:07)
[2019-10-28] MEDS ORDERED: LIDOCAINE 2% PF 5 ML VIAL. ONE (10:07)
[2019-10-28] MEDS ORDERED: ONDANSETRON PF 4 MG/2 ML VIAL. ONE (10:07)
[2019-10-28] MEDS ORDERED: PROPOFOL 100 ML IV ONE (10:07)
[2019-10-28] MEDS ORDERED: PROPOFOL 20 ML IV ONE (10:07)
[2019-10-28] MEDS ORDERED: SEVOFLURANE > 120 MINUTES. IH ONE (10:10)
[2019-10-28] MEDS ORDERED: ePHEDrine PF IN SALINE 50 MG/10 ML SYRINGE. IV ONE (10:36)
[2019-10-28] MEDS ORDERED: CYCLOBENZAPRINE 10 MG TABLET. PO PRN (11:15)
[2019-10-28] MEDS ORDERED: CALCIUM CARBONATE 500 MG TAB.CHEW PO PRN (11:15)
[2019-10-28] MEDS ORDERED: MORPHINE SULFATE 2 MG/ML VIAL. IV PRN (11:15)
[2019-10-28] MEDS ORDERED: fentaNYL PF VIAL 100 MCG/2 ML VIAL IV PRN (11:15)
[2019-10-28] MEDS ORDERED: diphenhydrAMINE 50 MG/ML VIAL IV PRN (11:15)
[2019-10-28] MEDS ORDERED: PROCHLORPERAZINE 5 MG TABLET. PO PRN (11:15)
[2019-10-28] MEDS ORDERED: 0.9 % SODIUM CHLORIDE 10 ML DISP.SYRIN. IV PRN (11:15)
[2019-10-28] MEDS ORDERED: ZOLPIDEM 5 MG TABLET. PO PRN (11:15)
[2019-10-28] MEDS ORDERED: DEXTROSE 50% 25 GM / 50ML DISP.SYRIN. IV PRN (11:15)
--- NOTE | 2019-10-28 11:25 | PDOC4 ---
Operative Note Operative Note Date of surgery: 10/28/2019 Preoperative diagnosis: Degenerative joint disease left hip secondary to dysplasia Postoperative diagnosis: Same Operative procedure: Left total hip arthroplasty Surgeon: Kevin Assist: Pierre Cheung nurse practitioner Anesthesia: Gen. Estimated blood loss: 150 mL Complications: None Specimens: Femoral head to pathology Drains: Hemovac drain and intra-articular pain catheter Operative indications: Please see my preoperative history and physical for detailed operative indications Operative text: Patient was identified procedure verified patient placed in the supine position on the operative table. After adequate amounts of general anesthesia were administered she was placed decubitus with the Stulberg hip positioner all bony prominences were well-padded and the left hip was prepped an d draped in standard sterile fashion. After timeout was performed patient procedure identified and verified curvilinear incision was made over the greater trochanter dissection carried out down to the iliotibial band and gluteal fascia which were split in line with their fibers. A Charnley retractor was placed external rotators were divided from their insertion hip capsule was split in a T fashion hip was dislocated femoral neck cut was made with the cutting guide and femoral head sized at a size 50 and noted to be severely degenerative sent for pathological evaluation. Acetabulum was then exposed contents of the fovea and any residual labrum were removed successive size reaming was carried out up to a size 53 with a 54 Zuleta & Nephew cluster hole hemispherical acetabular component with a single superiorly directed screw and excellent fixation was noted thorough irrigation carried out normal saline solution a 36 mm inner diameter standard liner was impacted in place femur was then prepared with a box osteotom e reaming and broaching to a size 11 standard offset and leg length and offset were restored with a +836 mm implant and gave excellent stability. Trial components were removed thorough irrigation carried out normal saline solution bleeding points controlled by electrocautery and a standard offset Synergy stem size 11 was impacted in proper version with a +836 mm Oxinium femoral head impacted in place to engage the Decker taper hip was noted to have excellent reproduction of leg length offset and stability with full range of motion hip capsule was repaired with #5 Ethibond external rotators were reattached transosseously with #5 Ethibond Hemovac and pain catheter were placed intra- articular mixture was injected throughout the joint capsule fascia was closed wi th #5 Ethibond in a interrupted fashion and reinforced with a #1 PDS strata fix subcutaneous closure in a layered fashion with #1 and 2-0 Vicryl suture skin closure with 3-0 Monocryl strata fix imelda dressing was applied with Acticoat patient was returned to recovery room in stable condition having tolerated procedure well. Pierre Cheung nurse practitioner was present for the procedure assisted in the prepping draping retraction and skin closure DIMITRIS GIBBONS MD Oct 28, 2019 11:25
[2019-10-28] MEDS: fentaNYL PF VIAL 100 MCG/2 ML VIAL IV PRN ×3 (11:46→12:34)
[2019-10-28] MEDS: ONDANSETRON PF 4 MG/2 ML VIAL. IV SCH ×2 (12:00→18:00)
[2019-10-28] MEDS: ONDANSETRON ODT 4 MG TAB.RAPDIS. PO SCH ×2 (12:00→18:00)
--- NOTE | 2019-10-28 12:45 | NUR ---
Adriana arrived to the floor in pain she is rating it "7" with facial grimacing and restlessness. she was medicated with fentanyl. o2 applied at 2l/nc. at bedside. history completed. she has good movement, sensation and pulses in bilateral lower extremities.
--- NOTE | 2019-10-28 13:30 | NUR ---
complains of increase in pain after xray completed. remedicated Addendum: 10/28/19 at 1731 by ESTEFANI JACKSON RN when answering history questions states she contemplated harming herself when she was young; but has not plan or desire to harm herself since an adult.
[2019-10-28] MEDS: hydroCHLOROthiazide 25 MG TABLET PO SCH (14:00)
[2019-10-28] MEDS: SPIRONOLACTONE 25 MG TABLET PO SCH (14:00)
[2019-10-28] MEDS: LEVOTHYROXINE 75 MCG TABLET PO SCH (15:19)
[2019-10-28] MEDS ORDERED: WARFARIN 7.5 MG TABLET. PO ONE (16:00)
[2019-10-28] MEDS: VENLAFAXINE 50 MG TABLET. PO SCH ×2 (16:41→21:20)
[2019-10-28] MEDS: FERROUS SULFATE 325 MG TABLET. PO SCH (16:41)
[2019-10-28] MEDS: oxyCODONE IR 5 MG TABLET PO PRN ×2 (16:42→21:20)
--- NOTE | 2019-10-28 17:40 | RAD ---
HIP LEFT 2V WITH PELVIS History: Postop left hip arthroplasty. Technique: AP view the pelvis and 2 additional views of the left hip. Comparison: October 24, 2018. Findings: Interval left total hip arthroplasty. Expected postoperative finding subcutaneous and intra-articular gas. Normal alignment. No fracture. Lower lumbar spondylosis. Mild right hip DJD. Impression: 1. Interval left total hip arthroplasty. No immediate hardware complications. Electronically signed by: Cayden Jorgensen DO (10/28/2019 5:38 PM) [id number]
[2019-10-28] MEDS: KETOROLAC 30MG VIAL 30 MG, BUPIVACAINE MPF 0.25% 20 ML, EPINEPHrine 0.5 MG in TOTAL VOL... INT ART SCH (18:19)
[2019-10-28] MEDS: ACETAMINOPHEN 500 MG TABLET PO SCH (21:54)
[2019-10-28] MEDS: IV NORMAL SALINE 1000ML BAG 1,000 ML IV SCH (21:56)
[2019-10-29] MEDS: oxyCODONE IR 5 MG TABLET PO PRN ×4 (03:05→21:19)
[2019-10-29 03:12] VITALS: BP 104/71
[2019-10-29 04:54] LABS: HEMATOCRIT 28.8 % (36.0-47.0); HEMOGLOBIN 9.8 g/dL (12.0-15.5); RED BLOOD COUNT 3.09 x10^6/uL (3.50-5.40); RED CELL DISTRIBUTION WIDTH 13.6 % (11.5-14.5); WHITE BLOOD COUNT 15.1 x10^3/uL (4.0-11.0)
[2019-10-29 05:10] LABS: PROTHROMBIN TIME PATIENT 14.5 SEC (11.7-14.0)
[2019-10-29] MEDS: ONDANSETRON ODT 4 MG TAB.RAPDIS. PO SCH ×2 (05:35)
[2019-10-29] MEDS: ONDANSETRON PF 4 MG/2 ML VIAL. IV SCH ×2 (05:35)
[2019-10-29] MEDS: KETOROLAC 30MG VIAL 30 MG, BUPIVACAINE MPF 0.25% 20 ML, EPINEPHrine 0.5 MG in TOTAL VOL... INT ART SCH (06:00)
[2019-10-29] MEDS ORDERED: MAGNESIUM HYDROXIDE 2,400 MG/30 ML ORAL.SUSP. PO PRN (06:00)
[2019-10-29] MEDS: ACETAMINOPHEN 500 MG TABLET PO SCH ×3 (07:02→18:37)
[2019-10-29] MEDS: GABAPENTIN 100 MG CAPSULE. PO SCH ×3 (07:03→21:19)
[2019-10-29] MEDS: traMADol 50 MG TABLET PO SCH ×3 (07:03→18:38)
[2019-10-29] MEDS: LEVOTHYROXINE 75 MCG TABLET PO SCH (07:03)
[2019-10-29 07:12] VITALS: BP 96/60
--- NOTE | 2019-10-29 07:14 | NUR ---
Ambulating w/o difficulty. BP 96/60, "that's about my baseline." IAC infusing.
--- NOTE | 2019-10-29 07:55 | PDOC ---
ORTHO PROGRESS NOTES Subjective Patient has minimal pain, controlled LEFT hip, wants to start walking independently. Post-op Day: 1 Procedure LEFT MICHELLE Vitals Vital Signs Date Time Temp Pulse Resp B/P (MAP) Pulse Ox O2 Delivery O2 Flow Rate FiO2 10/29/19 07:12 97.7 86 20 96/60 (72) 98 Room Air 97.7 10/28/19 14:15 2.0 Labs Laboratory Tests Test 10/28/19 08:15 10/29/19 04:10 Prothrombin Time 12.7 SEC (11.7-14.0) 14.5 SEC (11.7-14.0) Prothromb Time International Ratio 1.0 (0.8-1.1) 1.2 (0.8-1.1) Activated Partial Thromboplast Time 32 SEC (24-38) White Blood Count 15.1 x10^3/uL (4.0-11.0) Red Blood Count 3.09 x10^6/uL (3.50-5.40) Hemoglobin 9.8 g/dL (12.0-15.5) Hematocrit 28.8 % (36.0-47.0) Mean Corpuscular Volume 93 fL (79-100) Mean Corpuscular Hemoglobin 32 pg (25-35) Mean Corpuscular Hemoglobin Concent 34 g/dL (31-37) Red Cell Distribution Width 13.6 % (11.5-14.5) Platelet Count 273 x10^3/uL (140-400) Laboratory Tests Test 10/28/19 08:15 10/29/19 04:10 Prothrombin Time 12.7 SEC (11.7-14.0) 14.5 SEC (11.7-14.0) Prothromb Time International Ratio 1.0 (0.8-1.1) 1.2 (0.8-1.1) Activated Partial Thromboplast Time 32 SEC (24-38) White Blood Count 15.1 x10^3/uL (4.0-11.0) Red Blood Count 3.09 x10^6/uL (3.50-5.40) Hemoglobin 9.8 g/dL (12.0-15.5) Hematocrit 28.8 % (36.0-47.0) Mean Corpuscular Volume 93 fL (79-100) Mean Corpuscular Hemoglobin 32 pg (25-35) Mean Corpuscular Hemoglobin Concent 34 g/dL (31-37) Red Cell Distribution Width 13.6 % (11.5-14.5) Platelet Count 273 x10^3/uL (140-400) Problems: (1) S/P total hip arthroplasty Assessment and Plan Post op day 1 Continue PT, OT, encourage PO fluid intake. Problem Qualifiers (1) S/P total hip arthroplasty: Laterality: left Qualified Codes: Z96.642 - Presence of left artificial hip joint CHICO GONCALVES Jr. PAC Oct 29, 2019 07:55
[2019-10-29 08:00] VITALS: BP 86/44
[2019-10-29] MEDS: FERROUS SULFATE 325 MG TABLET. PO SCH ×2 (08:02→16:46)
[2019-10-29] MEDS: MULTIVITAMIN with MINERAL TABLET. PO SCH (08:03)
[2019-10-29] MEDS: SENNOSIDES/DOCUSATE 8.6/50MG TABLET. PO SCH (08:03)
[2019-10-29] MEDS: MELOXICAM 7.5 MG TABLET PO SCH (08:04)
[2019-10-29] MEDS: VENLAFAXINE 50 MG TABLET. PO SCH ×3 (08:04→21:19)
[2019-10-29] MEDS: SPIRONOLACTONE 25 MG TABLET PO SCH (09:00)
[2019-10-29] MEDS: hydroCHLOROthiazide 25 MG TABLET PO SCH (09:00)
[2019-10-29] MEDS: IV NORMAL SALINE 1000ML BAG 1,000 ML IV SCH (11:13)
[2019-10-29] MEDS ORDERED: ONDANSETRON PF 4 MG/2 ML VIAL. IV PRN (12:00)
[2019-10-29] MEDS ORDERED: ONDANSETRON ODT 4 MG TAB.RAPDIS. PO PRN (12:00)
--- NOTE | 2019-10-29 13:58 | NUR ---
Pharmacy Warfarin Dosing Note S:Pharmacy consulted to assist with anticoagulation therapy started 10/28/19 with target INR: 1.6 - 2.5 O:GARCIA CONTEH is a 53 year old F s/p left MICHELLE LABS: Last INR: 1.2 Last HGB: 9.8 Last HCT: 28.8 Last PLT: 273 Last dose of 7.5 mg given on 10/28/19 at 1641 Previous Regimen: NA Vitamin K given: N Drug Interaction Changes: Same Interacting Drug Ongoing Drug Interactions: Meloxicam, Venlafaxine, Levothyroxine A:INR of 1.2 is below desired range. Target range for this patient is: 1.6 - 2.5 P: Warfarin dose: 5 mg Today at 1600 Bridge Therapy: None Next INR due 10/30/19 Pharmacy anticoagulation service will continue to follow. GONZALO CRAFT, [facility], 10/29/19 [id number]
[2019-10-29] MEDS ORDERED: BISACODYL 10 MG SUPP.RECT. PR PRN (16:00)
[2019-10-29] MEDS ORDERED: WARFARIN 5 MG TABLET. PO ONE (16:00)
[2019-10-29 18:22] VITALS: BP 111/69
[2019-10-30] MEDS: oxyCODONE IR 5 MG TABLET PO PRN ×3 (02:02→21:47)
[2019-10-30 05:32] LABS: HEMATOCRIT 26.9 % (36.0-47.0); HEMOGLOBIN 9.2 g/dL (12.0-15.5)
[2019-10-30 05:47] LABS: PROTHROMBIN TIME PATIENT 15.3 SEC (11.7-14.0)
[2019-10-30 06:00] VITALS: BP 89/62
[2019-10-30] MEDS: traMADol 50 MG TABLET PO SCH ×5 (06:00→17:13)
[2019-10-30] MEDS: ACETAMINOPHEN 500 MG TABLET PO SCH ×4 (06:11→17:13)
[2019-10-30] MEDS: LEVOTHYROXINE 75 MCG TABLET PO SCH (06:11)
[2019-10-30] MEDS: GABAPENTIN 100 MG CAPSULE. PO SCH ×3 (06:12→21:47)
[2019-10-30 06:45] LABS: CREATININE 1.2 mg/dL (0.6-1.0)
[2019-10-30 08:00] VITALS: BP 96/58
[2019-10-30] MEDS: MULTIVITAMIN with MINERAL TABLET. PO SCH (08:11)
[2019-10-30] MEDS: MELOXICAM 7.5 MG TABLET PO SCH (08:12)
[2019-10-30] MEDS: FERROUS SULFATE 325 MG TABLET. PO SCH ×2 (08:12→16:38)
[2019-10-30] MEDS: VENLAFAXINE 50 MG TABLET. PO SCH ×3 (08:12→21:48)
[2019-10-30] MEDS: hydroCHLOROthiazide 25 MG TABLET PO SCH (08:16)
[2019-10-30] MEDS: SPIRONOLACTONE 25 MG TABLET PO SCH (08:16)
[2019-10-30] MEDS: SENNOSIDES/DOCUSATE 8.6/50MG TABLET. PO SCH (08:22)
--- NOTE | 2019-10-30 11:09 | NUR ---
Pharmacy Warfarin Dosing Note S:Pharmacy consulted to assist with anticoagulation therapy started 10/28/19 with target INR: 1.6 - 2.5 O:GARCIA CONTEH is a 53 year old F with MICHELLE Left Hip LABS: Last INR: 1.2 Last HGB: 9.2 Last HCT: 28.8 Last PLT: 273 Last dose of 5 mg given on 10/29/19 at 1641 Previous Regimen: Vitamin K given: N Drug Interaction Changes: Same Interacting Drug Ongoing Drug Interactions: Meloxicam, Venlafaxine, Levothyroxine A:INR of 1.2 is below desired range. Target range for this patient is: 1.6 - 2.5 P: Warfarin dose: 5 mg Today at 1600 Bridge Therapy: None Next INR due IN AM Pharmacy anticoagulation service will continue to follow. ALEXA NICE RPH, 10/30/19 [id number]
--- NOTE | 2019-10-30 13:06 | PDOC ---
ORTHO PROGRESS NOTES Subjective LEFT hip pain tolerable well controlled per patient and she is up and walking with walker and assistance. No one at home to help today, prefers to be discharged tomorrow if she has a choice. Post-op Day: 2 Procedure LEFT MICHELLE Vitals Vital Signs Date Time Temp Pulse Resp B/P (MAP) Pulse Ox O2 Delivery O2 Flow Rate FiO2 10/30/19 11:40 95 Room Air 10/30/19 08:00 96/58 (71) 10/30/19 07:16 20 10/30/19 06:00 98.4 99 98.4 Labs Laboratory Tests Test 10/29/19 04:10 10/30/19 05:06 White Blood Count 15.1 x10^3/uL (4.0-11.0) Red Blood Count 3.09 x10^6/uL (3.50-5.40) Hemoglobin 9.8 g/dL (12.0-15.5) 9.2 g/dL (12.0-15.5) Hematocrit 28.8 % (36.0-47.0) 26.9 % (36.0-47.0) Mean Corpuscular Volume 93 fL (79-100) Mean Corpuscular Hemoglobin 32 pg (25-35) Mean Corpuscular Hemoglobin Concent 34 g/dL (31-37) 34 g/dL (31-37) Red Cell Distribution Width 13.6 % (11.5-14.5) Platelet Count 273 x10^3/uL (140-400) Prothrombin Time 14.5 SEC (11.7-14.0) 15.3 SEC (11.7-14.0) Prothromb Time International Ratio 1.2 (0.8-1.1) 1.2 (0.8-1.1) Creatinine 1.2 mg/dL (0.6-1.0) Estimated GFR (Cockcroft-Gault) 47.0 Creatine Kinase 603 U/L (26-192) Laboratory Tests Test 10/30/19 05:06 Hemoglobin 9.2 g/dL (12.0-15.5) Hematocrit 26.9 % (36.0-47.0) Mean Corpuscular Hemoglobin Concent 34 g/dL (31-37) Prothrombin Time 15.3 SEC (11.7-14.0) Prothromb Time International Ratio 1.2 (0.8-1.1) Creatinine 1.2 mg/dL (0.6-1.0) Estimated GFR (Cockcroft-Gault) 47.0 Creatine Kinase 603 U/L (26-192) Notes Patient appears comfortable, resting sitting in chair talking on cell phone. No apparent distress, A&O x 3. Calf non tender bilaterally as well as thighs without mass or palpable cords. DP pulses 2+ bilaterally. No redness, or significant swelling, nor edema. NV intact throughout lower extremities. Problems: (1) S/P total knee arthroplasty Assessment and Plan POD 2 1 S/P L MICHELLE motor and sensation intact distally dressing dry and intact PT/OT today Prefers discharge tomorrow as no one to help today. Problem Qualifiers (1) S/P total knee arthroplasty: Laterality: left Qualified Codes: Z96.652 - Presence of left artificial knee joint CHICO GONCALVES Jr. PAC Oct 30, 2019 1:06 pm
[2019-10-30] MEDS ORDERED: WARFARIN 5 MG TABLET. PO ONE (16:00)
--- NOTE | 2019-10-30 16:06 | PATHOLOGY ---
[facility] Accession Number: [id number] . 01 Material submitted: . bone - LEFT HIP BONE AND TISSUE. Modifiers: left . 01 Clinical history: . Osteoarthritis . 02 Diagnosis: "Left hip bone and tissue", removal: - Degenerative osteoarthritis. - Bone marrow with focal fibrosis and trilineage hematopoiesis. . (SKM:mml; 10/30/2019) [facility] 10/30/2019 1325 Local . 02 Electronically signed: . Garret Cantor MD, Pathologist NPI- [id number] . 01 Gross description: . Received in formalin labeled "Adriana Gill, left hip bone and tissue," is a femoral head with attached femoral neck measuring 5.2 x 4.8 x 5.3 cm in greatest dimensions. The articular surface is smooth and pale jackman to granular and light brown in appearance, displaying an area of extensive eburnation/pitting measuring 4.3 x 2.6 cm. Osteophytic lipping is also noted at the peripheral articular surface opposite the area of eburnation/pitting. Serial sectioning reveals granular, pale yellow-jackman to partially hemorrhagic cut surfaces. An area of friable, hemorrhagic bone is noted underlying a portion of the eburnated/pitted area. Strategic Sourcing Consultant sections of the articular surface are submitted in cassette A1, following decalcification. Strategic Sourcing Consultant osteophytic lipping is submitted in cassette A2, following decalcification. (DAC; 10/29/2019) XDC/XDC 10/29/2019 0746 Local . 02 Pathologist provided ICD-10: M16.12 . 02 CPT . 211479, [id number] Specimen Comment: A courtesy copy of this report has been sent to [phone], [phone] Specimen Comment: [id number] Specimen Comment: Report sent to and Performed at: [address] [facility] [address], [place], [place] [id number] MD Jesus Washburn MD Phone: [phone] Performed at: 02 [facility] [address] [place], [place] [id number] MD Isreal Doran MD Phone: [phone]
[2019-10-30 18:30] VITALS: BP 97/67
[2019-10-31] MEDS: traMADol 50 MG TABLET PO SCH ×3 (00:02→11:31)
[2019-10-31] MEDS: oxyCODONE IR 5 MG TABLET PO PRN ×2 (03:43→14:40)
[2019-10-31 06:00] VITALS: BP 112/85
[2019-10-31] MEDS: GABAPENTIN 100 MG CAPSULE. PO SCH ×2 (06:00→13:12)
[2019-10-31] MEDS: LEVOTHYROXINE 75 MCG TABLET PO SCH (06:19)
[2019-10-31] MEDS: ACETAMINOPHEN 500 MG TABLET PO SCH ×3 (06:19→11:31)
[2019-10-31 07:02] LABS: PROTHROMBIN TIME PATIENT 16.5 SEC (11.7-14.0)
[2019-10-31 07:07] LABS: HEMOGLOBIN 9.1 g/dL (12.0-15.5)
[2019-10-31] MEDS: MULTIVITAMIN with MINERAL TABLET. PO SCH (08:21)
[2019-10-31] MEDS: SENNOSIDES/DOCUSATE 8.6/50MG TABLET. PO SCH (08:21)
[2019-10-31] MEDS: FERROUS SULFATE 325 MG TABLET. PO SCH (08:21)
[2019-10-31] MEDS: MELOXICAM 7.5 MG TABLET PO SCH (08:21)
[2019-10-31] MEDS: VENLAFAXINE 50 MG TABLET. PO SCH ×2 (08:24→13:11)
[2019-10-31] MEDS: hydroCHLOROthiazide 25 MG TABLET PO SCH (08:25)
[2019-10-31] MEDS: SPIRONOLACTONE 25 MG TABLET PO SCH (08:25)
[2019-10-31 08:35] VITALS: BP 96/65
[2019-10-31] MEDS ORDERED: OXYC5CAP PO (12:32)
[2019-10-31] MEDS ORDERED: TRAM50TA PO (12:32)
--- NOTE | 2019-10-31 12:35 | DISCH ---
DISCHARGE INSTRUCTIONS Condition on Discharge Condition on Discharge: Stable Activity After Discharge Activity Instructions for Disc: Activity as tolerated Bathing Instructions: Shower-keep dressing dry, No Tub Bath until see Exercise Instruction after Dis: Exercise per therapy Driving Instructions after Dis: No driving for 2 weeks Weight Bearing Status after Di: As tolerated Diet after Discharge Diet after Discharge: Regular Diet Texture: Regular Wound Incision Care Wound/Incision Care: Ice to area for comfort, Do not change dressing Other wound/incision instructi: DO NOT change RICARDO dressing. It is to remain in place for two weeks. Community/Resources/Services Services at Discharge: Outpatient Therapy Contacting the after DC Call your doctor for: Concerns you may have Follow-Up Follow Up With: Dr Brown in 2 weeks Treatment/Equipment after DC Adaptive Equipment Issued: None DIMITRIS BROWN MD Oct 31, 2019 12:35
[2019-10-31] MEDS ORDERED: WARF6TAB49 PO (12:41)
--- NOTE | 2019-10-31 13:07 | NUR ---
Pharmacy Warfarin Dosing Note S:Pharmacy consulted to assist with anticoagulation therapy started 10/28/19 with target INR: 1.6 - 2.5 O:GARCIA CONTEH is a 53 year old F with MICHELLE Left Hip LABS: Last INR: 1.4 Last HGB: 9.1 Last HCT: 28.8 Last PLT: 273 Last dose of 5 mg given on 10/30/19 at 1641 Previous Regimen: Vitamin K given: N Drug Interaction Changes: Same Interacting Drug Ongoing Drug Interactions: Meloxicam, Venlafaxine, Levothyroxine A:INR of 1.4 is below desired range. Target range for this patient is: 1.6 - 2.5 P: Warfarin dose: 5 mg Prior to Discharge Bridge Therapy: None Next INR due ON SATURDAY 11/03 AT [facility] Pharmacy anticoagulation service will continue to follow. ALEXA NICE [facility], 10/31/19 5003
[2019-10-31] MEDS ORDERED: WARFARIN 3 MG TABLET. PO ONE (14:00)
[2019-10-31 16:05] VITALS: BP 131/55
--- NOTE | 2019-10-31 16:11 | NUR ---
Patient left the building around 1600 with her . Discharge education completed by this nurse, therapy, and the doctor prior to dismissal. Coumadin instructions given by this nurse and pharmacy and coumadin given to the patient to take home. One script for oxy and tramadol given to the patient. OPT set up by senior materials planner. RICARDO dressing instructions addressed. No concerns noted upon discharge.
== END 2019-10-31 16:10 | disposition home or self-care (01) | DRG 470 ==
LOC: OPSVCIP 07:23 → 4 SOUTHEST 12:43
PROVIDERS: ADMIT Orthopaedic Surgery; ATTEND Orthopaedic Surgery
PROC: 0SRB06Z Replacement of Left Hip Joint with Oxidized Zirconium on Polyethylene Synthetic Substitute, Open Approach (ICD-10-PCS; principal; 2019-10-28 09:30)
DX: M16.12 Unilateral primary osteoarthritis, left hip (principal); M21.70 Unequal limb length (acquired), unspecified site; E03.9 Hypothyroidism, unspecified; Z80.3 Family history of malignant neoplasm of breast; Z82.49 Family history of ischemic heart disease and other diseases of the circulatory system; Z83.3 Family history of diabetes mellitus; Z90.710 Acquired absence of both cervix and uterus; Z96.642 Presence of left artificial hip joint; Z96.652 Presence of left artificial knee joint; E66.9 Obesity, unspecified; Z68.37 Body mass index [BMI] 37.0-37.9, adult; Z88.2 Allergy status to sulfonamides; Z88.8 Allergy status to other drugs, medicaments and biological substances
CPT/HCPCS: 36415; 73502; 82550; 82565; 85014; 85018; 85027; 85610; 85730; 86850; 86900; 86901; 88304; 88311; A7015; C1713; J0171; J0696; J1100; J1885; J2001; J2250; J2270; J2405; J2704; J2710; J2795; J3010; J3490; J7030; J7120; 97116; 97150; 97530; 97535; G0378

== ENCOUNTER → 2020-04-27 | Outpatient (CLI) | payer OTHER ==
[~2020-04-27] MED LIST changes: -ACETAMINOPHEN 500 MG TABLET PO PRN; -GABAPENTIN 300 MG CAPSULE. PO PRN; -IV RINGERS,LACTATED 1000ML 1,000 ML IV SCH; -KETOROLAC 30MG VIAL 30 MG, ROPIVacaine 0.5% PF 60 ML, EPINEPHrine 0.5 MG in IV NORMAL S... INJ ONE; -MELOXICAM 7.5 MG TABLET PO PRN; -ONDANSETRON PF 4 MG/2 ML VIAL. IV PRN; +OXYC5CAP PO; -PROCHLORPERAZINE 10 MG/2 ML VIAL. IV PRN; +TRAM50TA PO; -TRANEXAMIC ACID 1,000 MG in IV NS 50ML -- 1ST BAG INJ ONE; -TV=100ml MORPHINE 5 MG, KETOROLAC 30 MG, ROPIVacaine 0.5% PF 60 ML, EPINEPH... INT ART ONE; +WARF6TAB49 PO; -ceFAZolin 2GM PREMIX 2 GM/50 ML BAG IV ONE; -fentaNYL PF VIAL 100 MCG/2 ML VIAL IV PRN
[2020-04-27 06:12] LABS: ALBUMIN 3.8 g/dL (3.4-5.0); CALCIUM 9.1 mg/dL (8.5-10.1); CREATININE 1.5 mg/dL (0.6-1.0); GFR 36.2; POTASSIUM 3.4 mmol/L (3.5-5.1); TOTAL BILIRUBIN 0.2 mg/dL (0.2-1.0); TOTAL PROTEIN 7.7 g/dL (6.4-8.2)
[2020-04-27 07:01] LABS: BASO # 0.1 x10^3/uL (0.0-0.2); BASO % 1 % (0-3); EOS # 0.3 x10^3/uL (0.0-0.7); EOS % 3 % (0-3); HEMATOCRIT 35.7 % (36.0-47.0); LYMPH % 29 % (24-48); MEAN CORPUSCULAR HEMOGLOBIN 31 pg (25-35); MEAN CORPUSCULAR HGB CONC 34 g/dL (31-37); MEAN CORPUSCULAR VOLUME 92 fL (79-100); MONO # 0.6 x10^3/uL (0.0-1.1); MONO % 6 % (0-9); NEUT # 6.5 x10^3/uL (1.8-7.7); NEUT % 62 % (31-73); PLATELET COUNT 371 x10^3/uL (140-400); RED BLOOD COUNT 3.87 x10^6/uL (3.50-5.40); WHITE BLOOD COUNT 10.5 x10^3/uL (4.0-11.0)
== END ==
LOC: SPEC 05:39
PROVIDERS: ATTEND Physician Assistant Medical
DX: N28.9 Disorder of kidney and ureter, unspecified (principal)
CPT/HCPCS: 36415; 80053; 85025

== ENCOUNTER → 2020-06-18 | Outpatient (CLI) | payer OTHER | END | disposition home or self-care (01) | LOC: LAB 13:07 | PROVIDERS: ATTEND Internal Medicine Pulmonary Disease | DX: Z11.59 Encounter for screening for other viral diseases (principal) | CPT/HCPCS: U0003-CS ==

== ENCOUNTER 2021-05-12 07:34 | Emergency (ER) | payer OTHER ==
[~2021-05-12] VITALS: Ht 165.1 cm; Wt 120.0 kg
--- NOTE | 2021-05-12 07:52 | PHYS DOC ---
Past Medical History Past Medical History: Depression, Hypothyroid, Ovarian Cyst Past Surgical History: Cholecystectomy, Hysterectomy Additional Past Surgical Histo: Left hip Smoking Status: Never Smoker Alcohol Use: None Drug Use: None General Adult EDM: Chief Complaint: ELBOW PROBLEM HPI: HPI: 55-year-old female presents with report of right elbow pain x2 days which is worse with movement. Denies known trauma. Denies swelling or redness. Denies fever or chills. 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 Patient is concerned for possible tendinitis. Review of Systems: Review of Systems: Constitutional: Denies fever or chills Eyes: Denies redness or eye pain HENT: Denies nasal congestion or sore throat Respiratory: Denies cough or shortness of breath Cardiovascular: Denies chest pain or palpitations GI: Denies abdominal pain, nausea, or vomiting : Denies dysuria or hematuria Musculoskeletal: Denies back pain; reports right elbow pain Integument: Denies rash or skin lesions Neurologic: Denies headache, focal weakness or sensory changes Complete systems were reviewed and found to be within normal limits, except as documented in this note. Heart Score: C/O Chest Pain: N/A Current Medications: Current Medications Medications (Trade) Dose Ordered Sig/Heather Start Time Stop Time Status Last Admin Dose Admin Dexamethasone (Decadron) 10 mg 1X ONCE 05/12/21 08:00 05/12/21 08:01 UNV Allergies: Allergies: Allergies Coded Allergies Type Severity Reaction Last Updated Verified Sulfa (Sulfonamide Antibiotics) Allergy Intermediate Rash 10/06/19 Yes codeine Allergy Intermediate Itching 10/06/19 Yes Physical Exam: PE: Constitutional: Well developed, well nourished, no acute distress, non-toxic appearance HENT: Normocephalic, atraumatic Eyes: Conjunctiva normal, no discharge Neck: Normal range of motion, no tenderness, supple Lungs & Thorax: No respiratory distress, equal chest rise and fall Skin: Warm, dry, no erythema, no rash Extremities: Right elbow tenderness to olecranon, mild swelling noted, radial pulse +2 on right, no deformity, ROM intact Neurologic: Alert and oriented X 3, normal motor function, normal sensory function, no focal deficits noted Psychologic: Affect normal, judgment normal EKG: EKG: [] Radiology/Procedures: Radiology/Procedures: PROCEDURE: ELBOW RIGHT 3V EXAMINATION: Right elbow radiograph. VIEWS: 3 COMPARISON: None INDICATION: Right elbow pain. FINDINGS: No acute fracture, dislocation or subluxation. No bone erosion or periosteal reaction. No soft tissue swelling or joint effusion. IMPRESSION: No acute osseous process. Electronically signed by: Dennise Yusuf MD (05/12/2021 8:17 AM) [facility] Course & Med Decision Making: Course & Med Decision Making Pertinent Imaging studies reviewed. (See chart for details) Patient presents with right elbow pain which is likely secondary to overuse/tendinitis. Ice applied. X-ray obtained without acute fracture or dislocation. Course of symptomatic steroids initiated. Ritchie wrap applied. Educated patient on RICE. Patient stable for discharge with outpatient follow-up with PCP/orthopedics. Orthopedic referral provided. Discussed findings and plan with patient, who acknowledges understanding and agreement. Dragon Disclaimer: Dragon Disclaimer: This electronic medical record was generated, in whole or in part, using a voice recognition dictation system. Splinting Splinting : Location: Right elbow Pre-Made Type: RITCHIE bandage Pre-Proc Neuro Vasc Exam: normal Post-Proc Neuro Vasc Exam: normal, unchanged from pre-exam Departure Departure Impression: Primary Impression: Right elbow tendinitis Disposition: HOME / SELF CARE / HOMELESS Condition: STABLE Referrals: NIRALI LLOYD (PCP) MARY IBARRA MD Patient Instructions: Elastic Bandage and RICE, Tennis Elbow, [id number] Additional Instructions: ICE area of discomfort 20 min on then leave off next 20 mins. Repeat several times daily as needed for next few days. Scripts Prednisone (PREDNISONE) 20 Mg Tablet 2 TAB PO DAILY for 4 Days, #8 TAB Start this medication tomorrow, Sunday05/13/21 Prov: BAILEY LYON DO 05/12/21 BAILEY LYON DO May 12, 2021 07:52
[2021-05-12] MEDS ORDERED: DEXAMETHASONE 4 MG TABLET PO ONE (08:15)
--- NOTE | 2021-05-12 08:20 | RAD ---
EXAMINATION: Right elbow radiograph. VIEWS: 3 COMPARISON: None INDICATION: Right elbow pain. FINDINGS: No acute fracture, dislocation or subluxation. No bone erosion or periosteal reaction. No soft tissue swelling or joint effusion. IMPRESSION: No acute osseous process. Electronically signed by: Dennise Yusuf MD (05/12/2021 8:17 AM) [facility]
[2021-05-12] MEDS ORDERED: PRED20TA PO (08:23)
== END 2021-05-12 08:34 | disposition home or self-care (01) ==
LOC: ER 07:34
DX: M77.8 Other enthesopathies, not elsewhere classified (principal); E03.9 Hypothyroidism, unspecified; F32.9 Major depressive disorder, single episode, unspecified; Z88.2 Allergy status to sulfonamides; Z88.5 Allergy status to narcotic agent
CPT/HCPCS: 73080; 99283

== ENCOUNTER → 2021-07-21 | Outpatient (CLI) | payer OTHER ==
[2021-05-12 07:35] VITALS: BP 128/77
[~2021-07-21] MED LIST changes: +BUPIVACAINE MPF 0.25% 10 ML VIAL. INT ART ONE; +IOHEXOL 300 MG/ML 50 ML VIAL. INT ART ONE; +LIDOCAINE 1% Multi-Dose 20 ML VIAL. INJ ONE; +PRED20TA PO; +methylPREDNISolone ACETATE 80 MG/ML VIAL. INT ART ONE
--- NOTE | 2021-07-21 10:03 | RAD ---
EXAM: Left trochanteric bursa injection WITH Fluoroscopic guidance DATE: 07/21/2021 8:44 AM CLINICAL HISTORY: Reason: BURSITIS OF LEFT HIP / Spl. Instructions: 80MG DEPO-MEDROL, MERCAINE .25%, LIDO 1% INJECTED, 0.3MIN FLUORO TIME / History: COMPARISON: None pertinent TECHNIQUE: The patient was informed of the indications and alternatives for this procedure as well as risks and benefits. No immediate contraindication identified. The patient provided informed, written consent. Laterality was confirmed by the entire team following a time out. Following initial Left trochanteric bursa localization, a suitable area was sterilely prepped and kofi ped. Local anesthesia was administered with 1% xylocaine. With intermittent fluoroscopic observation, a 22-gauge spinal needle was advanced into the Left trochanteric bursa sheath/capsule with confirmat ion of bursal position with infusion of less than 1 cc iodinated contrast and additional tactile conf irmation with injection of less than 1 cc lidocaine 1 percent. Subsequent infusion solution containin g 1 mL Depo-Medrol 80 mg/mL, 1 mL lidocaine 1 percent and 1 mL bupivacaine 0.25 percent. Hemostasis w ith local pressure. Local clinical exam negative for immediate complication. Patient informed re local potential signs or symptoms that may indicate need to return to ER/Ordering physician for further evaluation. Patient informed re precautionary measures after intra-synovial in jection of anesthetic. Patient informed re potential for short term increase local symptomatology due to steroid flare. Patient expressed understanding. Performing Physicians: Dr. Dayanara Carrera Blood Loss: 0 cc Pre-procedural Pain Scale: 5 Post-procedural Pain Scale: 1 Total Fluoroscopy time: 0.3 minutes Total spot images taken: 0 Total last image hold screen save images taken: 2 IMPRESSION: Successful injection Left trochanteric bursa with steroid and anesthetic per clinical request. Electronically signed by: Yury Carrera MD (07/21/2021 10:01 AM) [id number] CUSTOM FIELD 1
== END | disposition home or self-care (01) ==
LOC: RAD 10:17
PROVIDERS: ATTEND Orthopaedic Surgery
DX: M70.72 Other bursitis of hip, left hip (principal); E03.9 Hypothyroidism, unspecified; F32.9 Major depressive disorder, single episode, unspecified; Z90.49 Acquired absence of other specified parts of digestive tract; Z90.710 Acquired absence of both cervix and uterus; Z98.890 Other specified postprocedural states; Z79.899 Other long term (current) drug therapy; Z88.5 Allergy status to narcotic agent; Z88.0 Allergy status to penicillin
CPT/HCPCS: 20610; 77002; J1040; J3490; Q9967